=== PATIENT | female | born 1940 | race Hispanic/Latino ===

== ENCOUNTER 2019-11-19 06:05 | Day surgery (SDC) | payer MEDICARE ==
[2019-11-17 13:59] LABS: BASOPHILS % (AUTO) 0.2 % (0.0-5.0); EOSINOPHILS % (AUTO) 0.7 % (0.0-8.0); HEMATOCRIT 36.1 % (36-48); LYMPHOCYTES % (AUTO) 25.4 % (21.0-51.0); MEAN CORPUSCULAR HEMOGLOBIN 34.2 pg (27.0-33.0); MEAN CORPUSCULAR HGB CONC 34.3 g/dL (32.0-36.0); MEAN CORPUSCULAR VOLUME 99.4 fL (79-99); MONOCYTES % (AUTO) 8.7 % (3.0-13.0); NEUTROPHILS % (AUTO) 64.5 % (40.0-77.0); PLATELET COUNT (AUTO) 348 K/uL (130-400); RED BLOOD CELL COUNT(AUTO) 3.63 MIL/uL (4.00-5.50); RED CELL DISTRIBUTION WIDTH 11.6 % (11.0-15.5); WHITE BLOOD COUNT (AUTO) 8.2 K/uL (4.8-10.8)
[2019-11-17 14:12] LABS: APPEARANCE,URINE Clear (CLEAR); BILIRUBIN,URINE Small (NEGATIVE); COLOR,URINE Dark Yellow (YELLOW); GLUCOSE, URINE (UA) Negative (NEGATIVE); KETONES,URINE Trace mg/dL (NEGATIVE); LEUKOCYTE ESTERASE ,URINE Trace (NEGATIVE); NITRATE,URINE Negative (NEGATIVE); OCCULT BLOOD,URINE Negative (NEGATIVE); PROTEIN,URINE Trace mg/dL (NEGATIVE)
[2019-11-17 14:16] LABS: CREATININE 0.7 mg/dL (0.5-1.5); POTASSIUM 4.8 mmol/L (3.5-5.1)
[2019-11-17 14:18] LABS: INR 0.88 (0.85-1.15); PARTIAL THROMBOPLASTIN TIME 23.3 SEC (26.3-35.5); PROTHROMBIN TIME 9.5 SEC (9.6-11.6)
[2019-11-17 14:25] LABS: BACTERIA,URINE Rare /HPF (None Seen); RBC,URINE 0-1 /HPF (0-1); SQUAMOUS EPITHELIAL CELL,UR Few /HPF (0-2)
--- NOTE | 2019-11-18 10:13 | NUR ---
Spoke to Stefano MCCOLLUM and advised him of urine with trace leukest and wbc 2-5, no new orders for UA.
[~2019-11-19] VITALS: Ht 149.9 cm; Wt 75.7 kg
[2019-11-19] VITALS (12 sets, daily range): BP systolic 124–145; BP diastolic 55–73
[~2019-11-19 06:05] MED LIST: ACET-66 PO; BUPR-47 PO; DEXL60CA3 PO; GABA-529 PO; LEVE500T19 PO; LORA1TAB3 PO; MEMA1CAP3 PO; MIRA50TA PO; NITR0.4T50 SL; RANO500T2 PO; VENL-63 PO
[2019-11-19] MEDS ORDERED: SODIUM CHLORIDE 0.9% 1000ML 1,000 ML IV ONE (06:15)
[2019-11-19] MEDS ORDERED: IOHEXOL 350 MG/ML 100ML INFUS..BTL IV ONE (07:18)
[2019-11-19] MEDS ORDERED: IOHEXOL-350 50ML VIAL IV ONE (07:18)
[2019-11-19] MEDS ORDERED: NITROGLYCERIN 2 MG/VIAL VIAL IV ONE (07:18)
[2019-11-19] MEDS ORDERED: FENTANYL CITRATE PF 50 MCG/1 ML 2ML VIAL ONE (07:19)
[2019-11-19] MEDS ORDERED: MIDAZOLAM HCL 1 MG/ML 2ML VIAL ONE (07:19)
[2019-11-19] MEDS ORDERED: LIDOCAINE HCL 2% 20ML ONE (07:19)
[2019-11-19] MEDS ORDERED: BIVALIRUDIN 250 MG/VIAL IV ONE (07:19)
--- NOTE | 2019-11-19 07:30 | NUR ---
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
--- NOTE | 2019-11-19 07:30 | NUR ---
preop pt arrived via w/c in no distress for lhc. pt oriented to room and call light. spouse at bedside.
[2019-11-19] MEDS ORDERED: GLUCAGON 1MG KIT 1 MG ML IM PRN (08:15)
[2019-11-19] MEDS ORDERED: SODIUM CHLORIDE 0.9% 1000ML 1,000 ML IV SCH (08:15)
[2019-11-19] MEDS ORDERED: DEXTROSE 50%-WATER 50 ML DISP.SYRIN IV PRN (08:15)
--- NOTE | 2019-11-19 08:35 | NUR ---
post cath received pt and report post cath. pt in supine position in no distress, rt groin free from hematoma or bleeding
--- NOTE | 2019-11-19 13:57 | NUR ---
DISCHARGE PT AND SPOUSE GIVEN D/C INSTRUCTIONS. BOTH VOICED UNDERSTANDING. PT SITE FREE FROM HEMATOMA OR BLEEDING. PT TAKEN OUT VIA W/C IN NO DISTRESS.
== END 2019-11-19 13:57 | disposition home or self-care (01) ==
LOC: DAH 06:05 → EDSTATUS 12:00 → DAH 13:57
PROVIDERS: ATTEND Internal Medicine Cardiovascular Disease
DX: I25.119 Atherosclerotic heart disease of native coronary artery with unspecified angina pectoris (principal); I44.7 Left bundle-branch block, unspecified; I10 Essential (primary) hypertension; E78.49 Other hyperlipidemia; F41.9 Anxiety disorder, unspecified; F32.9 Major depressive disorder, single episode, unspecified; G30.9 Alzheimer's disease, unspecified; F02.80 Dementia in other diseases classified elsewhere, unspecified severity, without behavioral disturbance, psychotic disturbance, mood disturbance, and anxiety; I25.2 Old myocardial infarction; I87.2 Venous insufficiency (chronic) (peripheral); M19.90 Unspecified osteoarthritis, unspecified site; E86.0 Dehydration; I95.9 Hypotension, unspecified; R55 Syncope and collapse; Z79.01 Long term (current) use of anticoagulants; Z79.899 Other long term (current) drug therapy
CPT/HCPCS: 36415; 71045; 80048; 81001; 85025; 85610; 85730; 93005; 93458; 96360; 96361; A4215; A4216; A4221; A4222; A4223 ×3; A4606; A4663; C1894 ×2; J1644; J2250; J3490 ×2; J7030; Q9965; Q9967 ×2; 99156; 99157; J0583; J3010

== ENCOUNTER → 2023-01-20 | Outpatient (CLI) | payer MEDICARE ==
[~2023-01-20] VITALS: Ht 152.4 cm; Wt 72.8 kg
[~2023-01-20] MED LIST changes: +ARIP2TAB20 PO; +ATOR10TA69 PO; -BUPR-47 PO; +BUPR-49 PO; +CARV3.12 PO; +CHOL5POW MC; +FAMO40TA7 PO; +FLUT1DIS3 IH; +ISOS30TA92 PO; +LEVE750T66 PO; +OMEP40CA21 PO; +SACU1TAB PO; +TOLT4CAP PO; +VENL75TA89 PO
[2023-01-20 10:25] VITALS: BP 159/63; PULSE 80; RESP 16
[2023-01-20 10:29] LABS: BASOPHILS # (AUTO) 0.02 K/uL (0.00-0.20); BASOPHILS % (AUTO) 0.4 % (0.0-5.0); EOSINOPHILS # (AUTO) 0.04 K/uL (0.00-0.70); EOSINOPHILS % (AUTO) 0.7 % (0.0-8.0); HEMATOCRIT 36.2 % (36-48); IMMATURE GRANULOCYTE ABSOLUTE 0.01 K/uL (0-1); LYMPHOCYTES # (AUTO) 1.8 K/uL (1.0-4.8); LYMPHOCYTES % (AUTO) 31.2 % (21.0-51.0); MEAN CORPUSCULAR HEMOGLOBIN 33.2 pg (27.0-33.0); MEAN CORPUSCULAR HGB CONC 34.5 g/dL (32.0-36.0); MEAN CORPUSCULAR VOLUME 96.3 fL (79-99); MONOCYTES # (AUTO) 0.4 K/uL (0.1-1.0); MONOCYTES % (AUTO) 7.4 % (3.0-13.0); NEUTROPHILS # (AUTO) 3.4 K/uL (1.8-7.7); NEUTROPHILS % (AUTO) 60.1 % (40.0-77.0); PLATELET COUNT (AUTO) 364 K/uL (130-400); RED BLOOD CELL COUNT(AUTO) 3.76 MIL/uL (4.00-5.50); RED CELL DISTRIBUTION WIDTH 11.9 % (11.0-15.5); WHITE BLOOD COUNT (AUTO) 5.6 K/uL (4.8-10.8)
[2023-01-20 10:38] LABS: CREATININE 0.7 mg/dL (0.5-1.5); POTASSIUM 4.8 mmol/L (3.5-5.1)
[2023-01-20 10:41] LABS: INR < 0.93 (0.85-1.15); PROTHROMBIN TIME 10.2 SEC (9.6-11.6)
[2023-01-20 10:43] LABS: PARTIAL THROMBOPLASTIN TIME 27.7 SEC (26.3-35.5)
== END | disposition home or self-care (01) ==
LOC: EDSTATUS 09:00 → DAH 10:00
PROVIDERS: ATTEND Internal Medicine Cardiovascular Disease
DX: Z01.818 Encounter for other preprocedural examination (principal); I42.8 Other cardiomyopathies; I44.7 Left bundle-branch block, unspecified; Z79.01 Long term (current) use of anticoagulants; Z79.899 Other long term (current) drug therapy; Z53.8 Procedure and treatment not carried out for other reasons
CPT/HCPCS: 36415; 80048; 85025; 85610; 85730; 93005

== ENCOUNTER 2023-03-10 06:14 | Day surgery (SDC) | payer MEDICARE ==
[2023-03-06 10:18] LABS: BASOPHILS # (AUTO) 0.03 K/uL (0.00-0.20); BASOPHILS % (AUTO) 0.5 % (0.0-5.0); EOSINOPHILS # (AUTO) 0.05 K/uL (0.00-0.70); EOSINOPHILS % (AUTO) 0.8 % (0.0-8.0); HEMATOCRIT 35.2 % (36-48); IMMATURE GRANULOCYTE ABSOLUTE 0.03 K/uL (0-1); LYMPHOCYTES # (AUTO) 1.8 K/uL (1.0-4.8); LYMPHOCYTES % (AUTO) 27.9 % (21.0-51.0); MEAN CORPUSCULAR HEMOGLOBIN 33.1 pg (27.0-33.0); MEAN CORPUSCULAR HGB CONC 33.8 g/dL (32.0-36.0); MEAN CORPUSCULAR VOLUME 98.1 fL (79-99); MONOCYTES # (AUTO) 0.4 K/uL (0.1-1.0); MONOCYTES % (AUTO) 5.8 % (3.0-13.0); NEUTROPHILS # (AUTO) 4.3 K/uL (1.8-7.7); NEUTROPHILS % (AUTO) 64.5 % (40.0-77.0); PLATELET COUNT (AUTO) 368 K/uL (130-400); RED BLOOD CELL COUNT(AUTO) 3.59 MIL/uL (4.00-5.50); RED CELL DISTRIBUTION WIDTH 11.8 % (11.0-15.5); WHITE BLOOD COUNT (AUTO) 6.6 K/uL (4.8-10.8)
[2023-03-06 10:20] VITALS: BP 133/57; PULSE 73; RESP 18
[2023-03-06 10:34] LABS: INR < 0.93 (0.85-1.15); PROTHROMBIN TIME 10.2 SEC (9.6-11.6)
[2023-03-06 10:35] LABS: PARTIAL THROMBOPLASTIN TIME 26.5 SEC (26.3-35.5)
[2023-03-06 10:45] LABS: CREATININE 0.7 mg/dL (0.5-1.5); POTASSIUM 4.4 mmol/L (3.5-5.1)
[2023-03-10] VITALS (8 sets, daily range): BP systolic 128–144; BP diastolic 58–75; PULSE 60–66; RESP 11–16
[~2023-03-10] VITALS: Ht 152.4 cm; Wt 71.4 kg
[~2023-03-10 06:14] MED LIST changes: -ACET-66 PO; -ARIP2TAB20 PO; -BUPR-49 PO; +CHOL4PAC6 PO; -CHOL5POW MC; -DEXL60CA3 PO; -FAMO40TA7 PO; -GABA-529 PO; -LEVE500T19 PO; -MIRA50TA PO; -OMEP40CA21 PO; +PHEN100C9 PO; -RANO500T2 PO; -VENL-63 PO
[2023-03-10] MEDS: 0.9%NACL 1000ML 1,000 ML IV ONE (06:50)
[2023-03-10 06:52] LABS: CREATININE 0.7 mg/dL (0.5-1.5); POTASSIUM 4.5 mmol/L (3.5-5.1)
[2023-03-10] MEDS ORDERED: MEPERIDINE-PF 25 MG/ML SYG ONE ×2 (07:15→07:56)
[2023-03-10] MEDS ORDERED: LIDOCAINE HCL 1% MDV 50ML VIAL ONE (07:15)
[2023-03-10] MEDS ORDERED: CEFAZOLIN SODIUM 1 GM VIAL ONE (07:16)
[2023-03-10] MEDS ORDERED: IOHEXOL-350 50ML VIAL IV ONE (07:16)
[2023-03-10] MEDS ORDERED: MIDAZOLAM HCL 1 MG/ML 2ML VIAL ONE ×2 (07:16→07:56)
[2023-03-10] MEDS ORDERED: BUPIVACAINE/PF 0.25% 30ML VIAL IJ ONE (07:16)
[2023-03-10] MEDS ORDERED: ACETAMINOPHEN 500 MG TABLET PO PRN (09:30)
[2023-03-10] MEDS ORDERED: TRAM50TA4 PO (09:38)
[2023-03-10] MEDS: ACETAMINOPHEN WITH CODEINE 1 TAB TAB PO PRN (10:42)
== END 2023-03-10 12:45 | disposition home or self-care (01) ==
LOC: DAH 06:14
PROVIDERS: ATTEND Internal Medicine Cardiovascular Disease
DX: I42.8 Other cardiomyopathies (principal); I44.7 Left bundle-branch block, unspecified; I11.0 Hypertensive heart disease with heart failure; I50.42 Chronic combined systolic (congestive) and diastolic (congestive) heart failure; E78.5 Hyperlipidemia, unspecified; I87.2 Venous insufficiency (chronic) (peripheral); F32.A Depression, unspecified; G30.9 Alzheimer's disease, unspecified; F02.84 Dementia in other diseases classified elsewhere, unspecified severity, with anxiety; I25.2 Old myocardial infarction; E66.9 Obesity, unspecified; Z79.82 Long term (current) use of aspirin; Z79.01 Long term (current) use of anticoagulants; Z79.899 Other long term (current) drug therapy; Z68.28 Body mass index [BMI] 28.0-28.9, adult
CPT/HCPCS: 80048 ×2; 85025; 85610; 85730; 36415 ×2; 93005 ×2; 33225; 33249; 71045; A4223 ×3; C1769; C1882; C1900; C1896; C1895; J0690; J7030; J0665; J2250 ×2; J2175 ×2; J3490; Q9967; A4215; A6251; A4222; A4221; A4663; A4216; A6258; A4606; 99156; 99157